=== PATIENT | male | born 1965 | race Caucasian/White ===

== ENCOUNTER → 2017-03-31 | Outpatient (CLI) | payer SELFPAY ==
[~2017-03-31] MED LIST: ALEV220T26 PO; ATEN25TA PO; ATOR40TA75 PO; OMEG100011 PO; PANT40TA2 PO; PRAV10TA3 PO
== END ==
LOC: M WUC 15:16
PROVIDERS: ATTEND Nurse Practitioner Family
DX: E11.9 Type 2 diabetes mellitus without complications (principal)

== ENCOUNTER → 2017-05-14 | Outpatient (CLI) | payer SELFPAY ==
[2017-05-14 09:43] LABS: ESTIMATED AVERAGE GLUCOSE 209 MG/DL (60-110); HEMOGLOBIN A1c 8.9 %
== END ==
LOC: M WUC 08:10
DX: E11.9 Type 2 diabetes mellitus without complications (principal)
CPT/HCPCS: 83036

== ENCOUNTER → 2017-07-03 | Outpatient (CLI) | payer SELFPAY ==
[2017-07-03 09:13] LABS: ESTIMATED AVERAGE GLUCOSE 160 MG/DL (60-110); HEMOGLOBIN A1c 7.2 %
== END ==
LOC: M WUC 08:20
DX: E11.9 Type 2 diabetes mellitus without complications (principal)
CPT/HCPCS: 83036

== ENCOUNTER → 2017-08-02 | Outpatient (CLI) | payer SELFPAY ==
[2017-08-02 12:59] LABS: ALBUMIN 3.7 GM/DL (3.2-5.2); ALBUMIN/GLOBULIN RATIO 1.09 (1.00-1.93); ALKALINE PHOSPHATASE 61 U/L (45-117); ALT/SGPT 30 U/L (12-78); ANION GAP 7 MEQ/L (8-16); AST/SGOT 24 U/L (7-37); BILIRUBIN,TOTAL 0.4 MG/DL (0.2-1.0); BLOOD UREA NITROGEN 16 MG/DL (7-18); CALCIUM LEVEL 8.9 MG/DL (8.5-10.1); CARBON DIOXIDE LEVEL 28 MEQ/L (21-32); CHLORIDE LEVEL 109 MEQ/L (98-107); CHOLESTEROL LEVEL 130 MG/DL (<200); CHOLESTEROL RISK RATIO 3.333 (<5); CREATININE FOR GFR 1.03 MG/DL (0.70-1.30); GLOMERULAR FILTRATION RATE > 60.0 (>56); GLUCOSE, FASTING 112 MG/DL (70-100); HDL CHOLESTEROL 39 MG/DL (>40); NON-HDL-C 91 MG/DL; POTASSIUM SERUM 4.5 MEQ/L (3.5-5.1); SODIUM LEVEL 144 MEQ/L (136-145); TOTAL PROTEIN 7.1 GM/DL (6.4-8.2); TRIGLYCERIDES LEVEL 80 MG/DL (<150)
[2017-08-02 13:26] LABS: ESTIMATED AVERAGE GLUCOSE 148 MG/DL (60-110); HEMOGLOBIN A1c 6.8 %
== END ==
LOC: M WUC 08:12
DX: E78.4 Other hyperlipidemia (principal); E11.9 Type 2 diabetes mellitus without complications
CPT/HCPCS: 80053

== ENCOUNTER → 2018-03-21 | Outpatient (CLI) | payer OTHER ==
[2018-03-21 10:52] LABS: CHOLESTEROL LEVEL 126 MG/DL (<200); CHOLESTEROL RISK RATIO 3.705 (<5); HDL CHOLESTEROL 34 MG/DL (>40); LDL CHOLESTEROL 64 MG/DL (<100); NON-HDL-C 92 MG/DL; TRIGLYCERIDES LEVEL 140 MG/DL (<150)
== END ==
LOC: M WUC 08:28
DX: E78.5 Hyperlipidemia, unspecified (principal)
CPT/HCPCS: 80061

== ENCOUNTER → 2018-04-26 | Outpatient (CLI) | payer BC ==
[~2018-04-26] MED LIST changes: -PANT40TA2 PO; +PANT40TA3 PO
[2018-04-26 14:49] LABS: BLOOD UREA NITROGEN 17 MG/DL (7-18); CALCIUM LEVEL 8.8 MG/DL (8.5-10.1); CARBON DIOXIDE LEVEL 27 MEQ/L (21-32); CHLORIDE LEVEL 107 MEQ/L (98-107); CREATININE FOR GFR 1.06 MG/DL (0.70-1.30); GLOMERULAR FILTRATION RATE > 60.0 (>56); GLUCOSE, FASTING 157 MG/DL (70-100); POTASSIUM SERUM 4.2 MEQ/L (3.5-5.1); SODIUM LEVEL 141 MEQ/L (136-145)
[2018-04-26 14:50] LABS: ALBUMIN 3.6 GM/DL (3.2-5.2); ALT/SGPT 35 U/L (12-78); BILIRUBIN,TOTAL 0.3 MG/DL (0.2-1.0); TOTAL PROTEIN 6.8 GM/DL (6.4-8.2)
== END ==
LOC: M WUC 08:31
PROVIDERS: ATTEND Nurse Practitioner Family
DX: I10 Essential (primary) hypertension (principal)

== ENCOUNTER → 2018-06-13 | Outpatient (CLI) | payer BC ==
--- NOTE | 2018-06-13 17:17 | REP ---
Right hand four views: There is no fracture or dislocation. Mineralization joint spaces are unremarkable. There are small bone cysts in the capitate ossicle. Otherwise, negative right hand. Electronically Signed by Felix Preston MD 06/13/2018 05:08 P
== END ==
LOC: M WUC 16:56
PROVIDERS: ATTEND Physician Assistant
DX: S60.221A Contusion of right hand, initial encounter (principal); W18.30XA Fall on same level, unspecified, initial encounter; Y92.009 Unspecified place in unspecified non-institutional (private) residence as the place of occurrence of the external cause

== ENCOUNTER 2018-08-07 09:58 | Emergency (ER) | payer OTHER, BC ==
[~2018-08-07] VITALS: Ht 185.4 cm; Wt 117.3 kg
[2018-08-07 09:59] VITALS: BP 164/94
[2018-08-07] MEDS ORDERED: LIDOCAINE 2% MDV 20 ML VIAL SC ONE (11:00)
[2018-08-07] MEDS ORDERED: BACITRACIN OINT 30GM TOP STA (11:30)
[2018-08-07] MEDS ORDERED: NEOSPORIN OINT 0.9 GM PKT (FLOOR STOCK) As Ordered ONE (11:37)
[2018-08-07] MEDS ORDERED: NEOSPORIN TOP OINT 15GM TOP ONE (11:44)
== END 2018-08-07 11:55 | disposition home or self-care (01) ==
LOC: M ED 09:58
DX: S61.011A Laceration without foreign body of right thumb without damage to nail, initial encounter (principal); W26.0XXA Contact with knife, initial encounter; Y92.89 Other specified places as the place of occurrence of the external cause; Y99.0 Civilian activity done for income or pay; I10 Essential (primary) hypertension; E11.9 Type 2 diabetes mellitus without complications; F33.9 Major depressive disorder, recurrent, unspecified; E78.5 Hyperlipidemia, unspecified; Z88.1 Allergy status to other antibiotic agents; Z91.030 Bee allergy status

== ENCOUNTER 2019-01-06 10:14 | Emergency (ER) | payer OTHER, BC ==
[~2019-01-06] VITALS: Ht 185.4 cm; Wt 113.6 kg
[2019-01-06] MEDS ORDERED: PARO15TA PO (11:30)
[2019-01-06] MEDS ORDERED: GLYB25TA PO (11:30)
[2019-01-06] MEDS ORDERED: GEMF600T5 PO (11:30)
[2019-01-06] MEDS ORDERED: METF500T13 PO (11:30)
[2019-01-06] MEDS ORDERED: PERCOCET 5MG/325MG TAB PO ONE (11:30)
[2019-01-06] MEDS ORDERED: LIDOCAINE 2% MDV 20 ML VIAL SC ONE ×2 (11:30→11:45)
--- NOTE | 2019-01-06 11:56 | REP ---
LEFT HAND, FOUR VIEWS: Four views of the left hand performed. There is a comminuted fracture of the third distal phalanx with associated soft tissue disruption. There also appears to be some degree of soft tissue disruption of the distal 2nd and 4th digits. No other fracture is seen and there is no dislocation. Electronically Signed by Felix Chamorro MD 01/07/2019 04:41 P
[2019-01-06 12:27] VITALS: BP 139/88
[2019-01-06] MEDS ORDERED: KEFL500C17 PO (12:32)
== END 2019-01-06 12:45 | disposition home or self-care (01) ==
LOC: M ED 10:14 → EDBD 10:14 → M ED 12:45
DX: S62.633A Displaced fracture of distal phalanx of left middle finger, initial encounter for closed fracture (principal); S61.211A Laceration without foreign body of left index finger without damage to nail, initial encounter; S61.213A Laceration without foreign body of left middle finger without damage to nail, initial encounter; S61.215A Laceration without foreign body of left ring finger without damage to nail, initial encounter; W31.2XXA Contact with powered woodworking and forming machines, initial encounter; Y92.9 Unspecified place or not applicable; Y99.0 Civilian activity done for income or pay; I10 Essential (primary) hypertension; K21.9 Gastro-esophageal reflux disease without esophagitis; E78.5 Hyperlipidemia, unspecified

== ENCOUNTER → 2019-01-09 | Outpatient (CLI) | payer OTHER, BC ==
[~2019-01-09] MED LIST changes: +GEMF600T5 PO; +GLYB25TA PO; +KEFL500C17 PO; +METF500T13 PO; +PARO15TA PO
[2019-01-09 18:48] LABS: ALBUMIN 3.7 GM/DL (3.2-5.2); ALT/SGPT 29 U/L (12-78); BILIRUBIN,TOTAL 0.3 MG/DL (0.2-1.0); BLOOD UREA NITROGEN 16 MG/DL (7-18); CALCIUM LEVEL 9.1 MG/DL (8.5-10.1); CARBON DIOXIDE LEVEL 28 MEQ/L (21-32); CHLORIDE LEVEL 104 MEQ/L (98-107); CHOLESTEROL LEVEL 150 MG/DL (<200); CHOLESTEROL RISK RATIO 3.846 (<5); CREATININE FOR GFR 0.93 MG/DL (0.70-1.30); GLOMERULAR FILTRATION RATE > 60.0 (>56); GLUCOSE, FASTING 180 MG/DL (70-100); HDL CHOLESTEROL 39 MG/DL (>40); LDL CHOLESTEROL 68 MG/DL (<100); NON-HDL-C 111 MG/DL; POTASSIUM SERUM 4.8 MEQ/L (3.5-5.1); SODIUM LEVEL 140 MEQ/L (136-145); TRIGLYCERIDES LEVEL 215 MG/DL (<150)
[2019-01-09 18:59] LABS: HEMOGLOBIN A1c 7.9 %
[2019-01-09 19:14] LABS: MALB URINE SIEMENS 7.8 MG/L; MAU/CREAT RATIO 5.6 MCG/MG (0.0-30.0)
== END ==
LOC: M WUC 09:23
PROVIDERS: ATTEND Family Medicine
DX: E78.00 Pure hypercholesterolemia, unspecified (principal); E11.9 Type 2 diabetes mellitus without complications

== ENCOUNTER → 2019-06-12 | Outpatient (CLI) | payer BC ==
[2019-06-12 13:12] LABS: BLOOD UREA NITROGEN 13 MG/DL (7-18); CALCIUM LEVEL 9.3 MG/DL (8.5-10.1); CARBON DIOXIDE LEVEL 28 MEQ/L (21-32); CHLORIDE LEVEL 109 MEQ/L (98-107); CREATININE FOR GFR 0.89 MG/DL (0.70-1.30); GLOMERULAR FILTRATION RATE > 60.0 (>56); GLUCOSE, FASTING 215 MG/DL (70-100); POTASSIUM SERUM 4.3 MEQ/L (3.5-5.1); SODIUM LEVEL 140 MEQ/L (136-145)
[2019-06-12 13:29] LABS: HEMOGLOBIN A1c 9.4 %
== END ==
LOC: M WUC 09:48
PROVIDERS: ATTEND Family Medicine
DX: E11.9 Type 2 diabetes mellitus without complications (principal)

== ENCOUNTER → 2019-06-18 | Outpatient (REF) | payer BC | LOC: M SFHCPLAZ 10:50 | PROVIDERS: ATTEND Family Medicine | DX: Z53.9 Procedure and treatment not carried out, unspecified reason (principal) ==

== ENCOUNTER → 2019-09-22 | Outpatient (REF) | payer OTHER ==
[~2019-09-22] MED LIST changes: -PARO15TA PO; +PARO30TA4 PO
== END ==
LOC: M SFHCPLAZ 11:08
PROVIDERS: ATTEND Family Medicine
DX: E11.9 Type 2 diabetes mellitus without complications (principal)

== ENCOUNTER 2019-10-08 15:39 | Emergency (ER) | payer OTHER, SELFPAY ==
[~2019-10-08] VITALS: Ht 185.4 cm; Wt 110.0 kg
[2019-10-08] MEDS ORDERED: JARD1TAB3 (15:46)
--- NOTE | 2019-10-08 17:15 | REP ---
REASON: Pain after trauma. Hairline nondisplaced fractures are seen involving the base of the 5th metatarsal. The examination is otherwise unremarkable. Electronically Signed by El Pierre DO 10/11/2019 07:42 A
[2019-10-08] MEDS ORDERED: ACETAMINOPHEN 325 MG TAB PO ONE (17:30)
[2019-10-08 17:52] VITALS: BP 131/92
== END 2019-10-08 17:55 | disposition home or self-care (01) ==
LOC: M ED 15:39
DX: S92.354A Nondisplaced fracture of fifth metatarsal bone, right foot, initial encounter for closed fracture (principal); W01.0XXA Fall on same level from slipping, tripping and stumbling without subsequent striking against object, initial encounter; Y92.009 Unspecified place in unspecified non-institutional (private) residence as the place of occurrence of the external cause; Y93.9 Activity, unspecified; Y99.9 Unspecified external cause status; E11.9 Type 2 diabetes mellitus without complications; Z79.84 Long term (current) use of oral hypoglycemic drugs; Z79.899 Other long term (current) drug therapy; Z88.8 Allergy status to other drugs, medicaments and biological substances; Z91.030 Bee allergy status

== ENCOUNTER → 2020-02-29 | Outpatient (REF) | payer BC, OTHER ==
[~2020-02-29] MED LIST changes: +JARD1TAB3; +PANT40TA29 PO; -PANT40TA3 PO
[2020-02-29 13:28] LABS: BLOOD UREA NITROGEN 14 MG/DL (7-18); CALCIUM LEVEL 9.4 MG/DL (8.5-10.1); CARBON DIOXIDE LEVEL 27 MEQ/L (21-32); CHLORIDE LEVEL 105 MEQ/L (98-107); CREATININE FOR GFR 1.12 MG/DL (0.70-1.30); GLOMERULAR FILTRATION RATE > 60.0 (>56); GLUCOSE, FASTING 169 MG/DL (70-100); POTASSIUM SERUM 4.4 MEQ/L (3.5-5.1); SODIUM LEVEL 139 MEQ/L (136-145)
[2020-02-29 14:16] LABS: HEMOGLOBIN A1c 8.2 %
== END ==
LOC: M SFHCPLAZ 11:05
PROVIDERS: ATTEND Family Medicine
DX: E11.9 Type 2 diabetes mellitus without complications (principal)

== ENCOUNTER → 2020-03-01 | Outpatient (REF) | payer BC | LOC: M SFHCPLAZ 10:52 | PROVIDERS: ATTEND Family Medicine | DX: Z53.9 Procedure and treatment not carried out, unspecified reason (principal); E11.9 Type 2 diabetes mellitus without complications; E78.00 Pure hypercholesterolemia, unspecified ==

== ENCOUNTER → 2020-06-02 | Outpatient (REF) | payer BC ==
[2020-06-02 14:16] LABS: HEMOGLOBIN A1c 7.1 %
[2020-06-02 14:34] LABS: BLOOD UREA NITROGEN 14 MG/DL (7-18); CALCIUM LEVEL 8.8 MG/DL (8.5-10.1); CARBON DIOXIDE LEVEL 28 MEQ/L (21-32); CHLORIDE LEVEL 105 MEQ/L (98-107); CHOLESTEROL LEVEL 149 MG/DL (<200); CHOLESTEROL RISK RATIO 4.382 (<5); CREATININE FOR GFR 1.04 MG/DL (0.70-1.30); GLOMERULAR FILTRATION RATE > 60.0 (>56); GLUCOSE, FASTING 232 MG/DL (70-100); HDL CHOLESTEROL 34 MG/DL (>40); LDL CHOLESTEROL 36 MG/DL (<100); NON-HDL-C 115 MG/DL; POTASSIUM SERUM 4.7 MEQ/L (3.5-5.1); SODIUM LEVEL 141 MEQ/L (136-145); TRIGLYCERIDES LEVEL 395 MG/DL (<150)
[2020-06-02 14:38] LABS: CREATININE, URINE 69.9 MG/DL; MALB URINE SIEMENS < 5.0 MG/L; MAU/CREAT RATIO 7.1 MCG/MG (0.0-30.0)
== END ==
LOC: M SFHCPLAZ 09:33
PROVIDERS: ATTEND Family Medicine
DX: E11.9 Type 2 diabetes mellitus without complications (principal); E78.00 Pure hypercholesterolemia, unspecified

== ENCOUNTER → 2020-06-06 | Outpatient (REF) | payer BC | LOC: M SFHCPLAZ 10:36 | PROVIDERS: ATTEND Family Medicine | DX: E11.9 Type 2 diabetes mellitus without complications (principal) ==

== ENCOUNTER → 2020-07-09 | Outpatient (CLI) | payer BC ==
[~2020-07-09] MED LIST changes: +GLYB2.5T7 PO; -GLYB25TA PO; +JARD1TAB3 PO; +TRUL10IN SC
== END ==
LOC: M LABSMTC 10:15
PROVIDERS: ATTEND Anesthesiology
DX: Z01.812 Encounter for preprocedural laboratory examination (principal); Z20.822 Contact with and (suspected) exposure to COVID-19

== ENCOUNTER 2020-07-14 07:49 | Day surgery (SDC) | payer BC ==
[~2020-07-14] VITALS: Ht 185.4 cm; Wt 109.8 kg
[~2020-07-14 07:49] MED LIST changes: +NS 1,000 ML IV ONE
[2020-07-14] MEDS ORDERED: propofoL 200 MG/20 ML VIAL As Ordered ONE (09:18)
[2020-07-14] MEDS ORDERED: LIDOCAINE 2% 100MG/5ML SDV (FOR ANES.) As Ordered ONE (09:18)
--- NOTE | 2020-07-14 09:32 | ROOR ---
Patient Name: Felix Gabriel Procedure Date: 07/14/2020 8:57 AM Date of : 1965 Age: 55 Room: [facility] Gender: Male Note Status: Finalized Procedure: Colonoscopy Indications: Screening for colorectal malignant neoplasm Providers: Nicholas Armenta MD Referring MD: Zohaib Proctor Do Requesting Provider: Medicines: Monitored Anesthesia Care Complications: No immediate complications. Procedure: Pre-Anesthesia Assessment: - Prior to the procedure, a History and Physical was performed, and patient medications and allergies were reviewed. The patient is competent. The risks and benefits of the procedure and the sedation options and risks were discussed with the patient. All questions were answered and informed consent was obtained. Patient identification and proposed procedure were verified by the physician, the nurse and the anesthesiologist in the procedure room. Airway Examination: normal oropharyngeal airway and neck mobility. Respiratory Examination: clear to auscultation. CV Examination: normal. Prophylactic Antibiotics: The patient does not require prophylactic antibiotics. Prior Anticoagulants: The patient has taken no previous anticoagulant or antiplatelet agents. ASA Grade Assessment: II - A patient with mild systemic disease. After reviewing the risks and benefits, the patient was deemed in satisfactory condition to undergo the procedure. The anesthesia plan was to use monitored anesthesia care (MAC). Immediately prior to administration of medications, the patient was re-assessed for adequacy to receive sedatives. The heart rate, respiratory rate, oxygen saturations, blood pressure, adequacy of pulmonary ventilation, and response to care were monitored throughout the procedure. The physical status of the patient was re-assessed after the procedure. The Colonoscope was introduced through the anus and advanced to the terminal ileum, with identification of the appendiceal orifice and IC valve. The colonoscopy was performed without difficulty. The patient tolerated the procedure well. The quality of the bowel preparation was good. The terminal ileum, ileocecal valve, appendiceal orifice, and rectum were photographed. Scope insertion time was 2 minutes. Scope withdrawal time was 10 minutes. The total duration of the procedure was 12 minutes. Findings: The perianal and digital rectal examinations were normal. The terminal ileum appeared normal. Four sessile polyps were found in the sigmoid colon, descending colon and transverse colon. The polyps were 4 to 12 mm in size. These polyps were removed with a hot snare. Resection and retrieval were complete. Verification of patient identification for the specimen was done by the physician and nurse using the patient's name, date and medical record number. Estimated blood loss was minimal. Non-bleeding external and internal hemorrhoids were found during retroflexion. The hemorrhoids were medium-sized. Impression: - The examined portion of the ileum was normal. - Four 4 to 12 mm polyps in the sigmoid colon, in the descending colon and in the transverse colon, removed with a hot snare. Resected and retrieved. - Non-bleeding external and internal hemorrhoids. Recommendation: - Patient has a contact number available for emergencies. The signs and symptoms of potential delayed complications were discussed with the patient. Return to normal activities tomorrow. Written discharge instructions were provided to the patient. - High fiber diet. - Continue present medications. - Await pathology results. - Repeat colonoscopy in 3 years for surveillance based on pathology results. - Telephone GI clinic for pathology results in 2 weeks. - Return to primary care physician. Procedure Code(s): --- Professional --- 07561, Colonoscopy, flexible; with removal of tumor(s), polyp(s), or other lesion(s) by snare technique Diagnosis Code(s): --- Professional --- Z12.11, Encounter for screening for malignant neoplasm of colon K64.8, Other hemorrhoids K63.5, Polyp of colon CPT copyright 2019 [employer]. All rights reserved. The codes documented in this report are preliminary and upon bore mill operator review may be revised to meet current compliance requirements. Nicholas Armenta MD Nicholas Armenta MD 07/14/2020 9:32:34 AM Electronically signed by Nicholas Armenta MD Number of Addenda: 0 Note Initiated On: 07/14/2020 8:57 AM Estimated Blood Loss: Estimated blood loss was minimal.
[2020-07-14 09:48] VITALS: BP 134/85
== END 2020-07-14 09:49 | disposition home or self-care (01) ==
LOC: M OPP 07:49
PROVIDERS: ATTEND Internal Medicine Gastroenterology
DX: Z12.11 Encounter for screening for malignant neoplasm of colon (principal); D12.3 Benign neoplasm of transverse colon; K64.8 Other hemorrhoids; Z79.84 Long term (current) use of oral hypoglycemic drugs; Z79.899 Other long term (current) drug therapy; Z91.018 Allergy to other foods; Z91.030 Bee allergy status; Z88.8 Allergy status to other drugs, medicaments and biological substances

== ENCOUNTER → 2020-08-14 | Outpatient (REF) | payer BC ==
[~2020-08-14] MED LIST changes: -NS 1,000 ML IV ONE
[2020-08-14 11:44] LABS: HEMOGLOBIN A1c 7.4 %
== END ==
LOC: M PLALAB 09:56
PROVIDERS: ATTEND Family Medicine
DX: E11.9 Type 2 diabetes mellitus without complications (principal)

== ENCOUNTER → 2020-09-13 | Outpatient (REF) | payer BC | LOC: M SFHCPLAZ 08:24 | PROVIDERS: ATTEND Family Medicine | DX: E11.9 Type 2 diabetes mellitus without complications (principal); Z53.9 Procedure and treatment not carried out, unspecified reason ==

== ENCOUNTER → 2020-12-01 | Outpatient (CLI) | payer BC ==
[2020-12-01 10:53] LABS: HEMOGLOBIN A1c 7.4 %
== END ==
LOC: M PLALAB 08:22
PROVIDERS: ATTEND Family Medicine
DX: E11.9 Type 2 diabetes mellitus without complications (principal)

== ENCOUNTER → 2020-12-05 | Outpatient (REF) | payer BC | LOC: M SFHCPLAZ 15:10 | PROVIDERS: ATTEND Family Medicine | DX: Z53.9 Procedure and treatment not carried out, unspecified reason (principal); E11.9 Type 2 diabetes mellitus without complications ==

== ENCOUNTER → 2021-08-20 | Outpatient (REF) | payer BC | LOC: M SFHCPLAZ 15:10 | PROVIDERS: ATTEND Family Medicine | DX: Z53.9 Procedure and treatment not carried out, unspecified reason (principal) ==

== ENCOUNTER → 2021-08-24 | Outpatient (CLI) | payer BC ==
[2021-08-24 16:41] LABS: CHOLESTEROL RISK RATIO 2.666 (<5)
[2021-08-24 16:49] LABS: MALB URINE SIEMENS 10.7 MG/L; MAU/CREAT RATIO 9.7 MCG/MG (0.0-30.0)
[2021-08-24 17:00] LABS: HEMOGLOBIN A1c 6.4 %
== END ==
LOC: M WUC 14:10
PROVIDERS: ATTEND Family Medicine
DX: E11.9 Type 2 diabetes mellitus without complications (principal)

== ENCOUNTER → 2022-03-18 | Outpatient (CLI) | payer BC, SELFPAY ==
[2022-03-18 11:05] LABS: CHLORIDE LEVEL 102 MMOL/L (98-107); POTASSIUM SERUM 4.3 MMOL/L (3.5-5.1); SODIUM LEVEL 140 MMOL/L (136-145)
[2022-03-18 11:06] LABS: CARBON DIOXIDE LEVEL 27 MMOL/L (20-31)
[2022-03-18 11:10] LABS: TRIGLYCERIDES LEVEL 436 MG/DL (<150)
[2022-03-18 11:11] LABS: BLOOD UREA NITROGEN 19 MG/DL (9-23); CALCIUM LEVEL 8.9 MG/DL (8.5-10.1); GLUCOSE, FASTING 150 MG/DL (60-100)
[2022-03-18 11:13] LABS: CHOLESTEROL LEVEL 167 MG/DL (<200); CHOLESTEROL RISK RATIO 5.49 (<5); CREATININE FOR GFR 0.94 MG/DL (0.70-1.30); GLOMERULAR FILTRATION RATE > 60.0 (>56); HDL CHOLESTEROL 30.4 MG/DL (>40); NON-HDL-C 137 MG/DL
[2022-03-18 11:45] LABS: CREATININE, URINE 142.2 MG/DL; MALB URINE SIEMENS < 5.0 MG/DL; MAU/CREAT RATIO 3.5 MCG/MG (0.0-30.0)
[2022-03-18 15:06] LABS: THYROID STIMULATING HORMONE 2.223 uIU/ML (0.55-4.78)
[2022-03-18 18:57] LABS: HEMOGLOBIN A1c 6.9 % (4.0-6.0)
== END ==
LOC: M PLALAB 07:53
PROVIDERS: ATTEND Student in an Organized Health Care Education/Training Program
DX: E11.9 Type 2 diabetes mellitus without complications (principal); E78.1 Pure hyperglyceridemia

== ENCOUNTER → 2022-06-20 | Outpatient (CLI) | payer BC ==
[2022-06-20 14:51] LABS: HEMOGLOBIN A1c 7.4 % (4.0-6.0)
[2022-06-20 15:03] LABS: CHOLESTEROL LEVEL 119 MG/DL (<200); LDL CHOLESTEROL 51.8 MG/DL (<100); NON-HDL-C 84 MG/DL; TRIGLYCERIDES LEVEL 161 MG/DL (<150)
[2022-06-20 15:29] LABS: ALKALINE PHOSPHATASE 76 U/L (46-116); ALT/SGPT 33 U/L (7.0-40); AST/SGOT 21 U/L (<34); BILIRUBIN,TOTAL 0.8 MG/DL (0.3-1.2); BLOOD UREA NITROGEN 16 MG/DL (9-23); CALCIUM LEVEL 8.8 MG/DL (8.5-10.1); CARBON DIOXIDE LEVEL 28 MMOL/L (20-31); CHLORIDE LEVEL 105 MMOL/L (98-107); GLOMERULAR FILTRATION RATE > 60.0 (>56); GLUCOSE, FASTING 139 MG/DL (60-100); POTASSIUM SERUM 4.7 MMOL/L (3.5-5.1); SODIUM LEVEL 142 MMOL/L (136-145)
== END ==
LOC: M PLALAB 09:17
PROVIDERS: ATTEND Student in an Organized Health Care Education/Training Program
DX: E11.9 Type 2 diabetes mellitus without complications (principal); E78.00 Pure hypercholesterolemia, unspecified; E78.1 Pure hyperglyceridemia

== ENCOUNTER → 2022-12-05 | Outpatient (CLI) | payer BC ==
[2022-12-05 11:15] LABS: CREATININE, URINE 153.9 MG/DL; MAU/CREAT RATIO 3.8 MCG/MG (0.0-30.0)
[2022-12-05 11:40] LABS: HEMOGLOBIN A1c 6.8 % (4.0-6.0)
== END ==
LOC: M PLALAB 08:23
PROVIDERS: ATTEND Student in an Organized Health Care Education/Training Program
DX: E11.9 Type 2 diabetes mellitus without complications (principal)

== ENCOUNTER → 2023-05-15 | Outpatient (CLI) | payer OTHER ==
[2023-05-15 13:22] LABS: HEMATOCRIT 45.7 % (42.0-52.0); HEMOGLOBIN 15.1 g/dl (13.5-17.5); MEAN CORPUSCULAR HEMOGLOBIN 29.3 pg (27.0-33.0); MEAN CORPUSCULAR VOLUME 88.7 fl (80.0-96.0); PLATELET COUNT, AUTOMATED 188 10^3/uL (150-450); RED BLOOD COUNT 5.15 10^6/uL (4.30-6.10); WHITE BLOOD COUNT 6.8 10^3/uL (4.0-10.0)
[2023-05-15 13:28] LABS: HEMOGLOBIN A1c 8.7 % (4.0-6.0)
[2023-05-15 13:36] LABS: BLOOD UREA NITROGEN 15 MG/DL (9-23); CALCIUM LEVEL 9.3 MG/DL (8.5-10.1); CARBON DIOXIDE LEVEL 30 MMOL/L (20-31); CHLORIDE LEVEL 109 MMOL/L (98-107); CHOLESTEROL LEVEL 95 MG/DL (<200); CHOLESTEROL RISK RATIO 2.98 (<5); CREATININE FOR GFR 0.97 MG/DL (0.70-1.30); GLOMERULAR FILTRATION RATE > 60.0 (>56); GLUCOSE, FASTING 120 MG/DL (60-100); HDL CHOLESTEROL 31.8 MG/DL (>40); LDL CHOLESTEROL 34.2 MG/DL (<100); NON-HDL-C 63.2 MG/DL; POTASSIUM SERUM 4.7 MMOL/L (3.5-5.1); PSA SCREENING 0.64 NG/ML (< 4.00); SODIUM LEVEL 138 MMOL/L (136-145); TRIGLYCERIDES LEVEL 145 MG/DL (<150)
== END ==
LOC: M PLALAB 08:44
PROVIDERS: ATTEND Student in an Organized Health Care Education/Training Program
DX: Z12.5 Encounter for screening for malignant neoplasm of prostate (principal); E78.00 Pure hypercholesterolemia, unspecified; I10 Essential (primary) hypertension; E11.9 Type 2 diabetes mellitus without complications
CPT/HCPCS: 36415; 80048; 80061; 83036; 85027; G0103

== ENCOUNTER → 2024-01-20 | Outpatient (CLI) | payer OTHER | LOC: M RAD 15:44 | PROVIDERS: ATTEND Physician Assistant | DX: S80.12XA Contusion of left lower leg, initial encounter (principal); Y92.9 Unspecified place or not applicable; Y93.9 Activity, unspecified ==

== ENCOUNTER 2024-03-23 08:30 | Day surgery (SDC) | payer OTHER ==
[~2024-03-23] VITALS: Ht 185.4 cm; Wt 102.0 kg
[~2024-03-23 08:30] MED LIST changes: +ATOR80TA59 PO; +MULT-90 PO; +OMEG10002 PO; +PARO20TA3 PO; +SEMA0.257
[2024-03-23 10:32] VITALS: TEMP 97.7
[2024-03-23 10:50] VITALS: BP 122/72; O2SAT 98
== END 2024-03-23 10:55 | disposition home or self-care (01) ==
LOC: M OPP 08:30
PROVIDERS: ATTEND Internal Medicine Gastroenterology
DX: Z12.11 Encounter for screening for malignant neoplasm of colon (principal); K64.8 Other hemorrhoids; Z86.0100 Personal history of colon polyps, unspecified; E11.9 Type 2 diabetes mellitus without complications; I10 Essential (primary) hypertension; E78.00 Pure hypercholesterolemia, unspecified; K21.9 Gastro-esophageal reflux disease without esophagitis; Z79.899 Other long term (current) drug therapy; Z79.84 Long term (current) use of oral hypoglycemic drugs; Z79.85 Long-term (current) use of injectable non-insulin antidiabetic drugs; Z88.1 Allergy status to other antibiotic agents; Z91.018 Allergy to other foods; Z91.030 Bee allergy status

== ENCOUNTER → 2024-12-13 | Outpatient (REF) | payer OTHER ==
[~2024-12-13] MED LIST changes: -PRAV10TA3 PO; +PRAV10TA43 PO
== END ==
LOC: M SFHCPLAZ 14:48
DX: Z53.9 Procedure and treatment not carried out, unspecified reason (principal)

== ENCOUNTER → 2024-12-16 | Outpatient (CLI) | payer OTHER ==
[2024-12-16 10:45] LABS: PLATELET COUNT, AUTOMATED 182 10^3/uL (150-450)
[2024-12-16 11:00] LABS: ESTIMATED AVERAGE GLUCOSE 174.0 MG/DL (60-110)
[2024-12-16 11:19] LABS: CALCIUM LEVEL 9.6 MG/DL (8.5-10.1); CARBON DIOXIDE LEVEL 29.0 MMOL/L (20-31); CHLORIDE LEVEL 108.0 MMOL/L (98-107); CHOLESTEROL LEVEL 119.0 MG/DL (<200); CHOLESTEROL RISK RATIO 3.26 (<5); CREATININE FOR GFR 1.0 MG/DL (0.70-1.30); GLOMERULAR FILTRATION RATE 87.8 (>56); LDL CHOLESTEROL 52.7 MG/DL (<100); NON-HDL-C 82.5 MG/DL; POTASSIUM SERUM 5.0 MMOL/L (3.5-5.1); SODIUM LEVEL 146.0 MMOL/L (136-145); TRIGLYCERIDES LEVEL 149.0 MG/DL (<150)
[2024-12-16 13:38] LABS: CREATININE, URINE 96.4 MG/DL; MALB URINE SIEMENS < 3.0 MG/L
== END ==
LOC: M PLALAB 09:48
DX: Z13.0 Encounter for screening for diseases of the blood and blood-forming organs and certain disorders involving the immune mechanism (principal); E11.9 Type 2 diabetes mellitus without complications; E78.00 Pure hypercholesterolemia, unspecified; I10 Essential (primary) hypertension